=== PATIENT | female | born 1990 | race Caucasian/White ===

== ENCOUNTER 2023-04-11 10:29 | Observation (INO) | payer BC, MEDICAID, SELFPAY ==
--- NOTE | ~2023-04-11 | CT_ITS ---
EXAMINATION: CT abdomen pelvis wo con DATE: 04/11/2023 13:14 INDICATION: Right flank pain. TECHNIQUE: Computed tomography (CT) of the abdomen and pelvis was performed without intravenous contr ast. Automated exposure control and iterative reconstruction technique were employed. The dose-length product was 298.58 mGy-cm. COMPARISON: None. FINDINGS: The visualized portions of the lung bases are clear without pneumonia or pleural effusion. The heart size is normal. No pericardial effusion. There is diffuse hepatic steatosis. There are torres ges of cholecystectomy. There are changes of gastric bypass procedure. The spleen, pancreas, adrenal glands, and left kidney are normal. There is mild right hydronephrosis and hydroureter. There is a 2 mm stone at right ureterovesicular junction. There are no dilated loops of bowel. There are changes o f appendectomy. There are no pathologically enlarged lymph nodes. There is no free intraperitoneal fl uid. There is mild lumbar spondylosis. IMPRESSION: 1. 2 mm stone at right ureterovesicular junction with mild right hydronephrosis and hydroureter. 2. Diffuse hepatic steatosis. Reviewed, dictated and finalized at location A. IMPRESSION: 1. 2 mm stone at right ureterovesicular junction with mild right hydronephrosi s and hydroureter. 2. Diffuse hepatic steatosis.
--- NOTE | ~2023-04-11 | XR_ITS ---
EXAMINATION: XR fluoroscopy no charge DATE: 04/12/2023 13:10 CDT INDICATION: RIGHT STONE EXTRACTION . TECHNIQUE: 2 fluoroscopic images of the abdomen and pelvis were obtained during right stone extractio n performed by the surgeon. I was not present in the operating room. Fluoroscopy exposure time was 2. 8 seconds. Air Kerma 1.12 mGy. DAP [id number] mGym2. COMPARISON: CT abdomen pelvis 04/11/2023 FINDINGS: Wire access into the right collecting system. IMPRESSION: Fluoroscopic documentation of right stone extraction. Please refer to the operative note for complete procedural details . Reviewed, dictated and finalized at location K. IMPRESSION: Fluoroscopic documentation of right stone extraction. Please refer to the opera tive note for complete procedural details .
[2023-04-11 11:02] VITALS: BP 131/82; PULSE 85; RESP 16; TEMP 36.9; O2SAT 100
[2023-04-11 11:45] LABS: Basophils Percent Auto 0.2 % (0.2-1.2); Eosinophils Absolute Auto 0.1 K/mm3 (0-0.3); Eosinophils Percent Auto 0.6 % (0-4.4); Hematocrit 39.3 % (37.0-47.0); Hemoglobin 12.8 g/dL (12.0-15.0); Immature Granulocyte Absolute 0.04 K/mm3 (0.00-0.031); Immature Granulocyte Percent A 0.3 % (0-0.5); Lymphocytes Absolute Auto 2.36 K/mm3 (0.9-3.2); Lymphocytes Percent Auto 18.6 % (18.3-44.2); Mean Corpuscular HGB Conc 32.6 g/dl (32-36); Mean Corpuscular Hemoglobin 28.9 pg (26-34); Mean Corpuscular Volume 88.7 fl (80-100); Mean Platelet Volume 12.1 fl (7.4-10.4); Monocytes Absolute Auto 1.3 K/mm3 (0.1-0.6); Monocytes Percent Auto 10.6 % (2.6-8.5); Neutrophils Absolute Auto 8.9 K/mm3 (1.3-6.7); Neutrophils Percent Auto 69.7 % (45.5-73.1); Platelet Count Result 191 k/mm3 (150-375); Red Blood Count 4.43 M/mm3 (4.2-5.4); Red Cell Distribution Width 13.2 % (11.5-14.5); White Blood Count 12.7 K/mm3 (4.5-10.0)
[2023-04-11 11:50] LABS: Alanine Aminotransferase 267 U/L (6-35); Albumin Level 3.9 g/dL (3.5-5.1); Alkaline Phosphatase 212 U/L (38-126); Anion Gap 9 mmol/L (8-16); Aspartate Amino Transferase 72 U/L (14-36); Bilirubin,Total 0.5 mg/dL (0.2-1.3); Blood Urea Nitrogen 7 mg/dL (7-17); Calcium 8.9 mg/dL (8.4-10.2); Carbon Dioxide 26 mmol/L (22-30); Chloride 105 mmol/L (98-107); Estimated CRCL calculation 95 ml/min; Estimated Glomerular Filt Rate > 60; Glucose 104 mg/dL (65-110); Potassium 3.4 mmol/L (3.4-5.0); Sodium 140 mmol/L (137-145)
--- NOTE | 2023-04-11 12:08 | ED.FEMALEGU ---
HPI - Female Genitourinary General Chief complaint: Urogenital-Female Stated complaint: kidney stone Time Seen by Provider: 04/11/23 11:29 History of Present Illness HPI Narrative: Patient is a 32-year-old female who presents ER for evaluation of kidney stone. She has a right-sided 2 to 3 mm stone. She has had multiple images at [facility]. She followed up with Dr. Subramanian and was given Golden Eagle. Golden Eagle is not helping her pain so she was referred here. She reports that he was wanting to be contacted. She has no fevers or chills or sweats. No dysuria. She is not on antibiotics. She cannot take anti-inflammatories due to gastric bypass surgery. Symptoms have been going on for 3 weeks. Related Data Home Medications Medication Instructions Recorded Confirmed benztropine 1 mg tablet 1 mg PO HS 04/11/23 04/11/23 cetirizine 10 mg capsule (All Day 10 mg PO DAILY 04/11/23 04/11/23 Allergy (cetirizine)) fluvoxamine 100 mg tablet 100 mg PO HS 04/11/23 04/11/23 lurasidone 40 mg tablet 40 mg PO HS 04/11/23 04/11/23 montelukast 10 mg tablet 10 mg PO HS 04/11/23 04/11/23 Allergies Allergy/AdvReac Type Severity Reaction Status Date / Time cephalexin Allergy Mild SWELLING Verified 04/11/23 18:38 Sulfa (Sulfonamide Allergy Mild RASH Verified 04/11/23 18:38 Antibiotics) Penicillins Allergy Unknown Unknown Verified 04/11/23 18:38 NSAIDS (Non-Steroidal Allergy Other Verified 04/11/23 18:38 Anti-Inflamma tolmetin Allergy Unknown Verified 04/11/23 18:38 ondansetron AdvReac Vomiting Verified 04/11/23 18:38 Review of Systems Review of Systems: All systems reviewed & are unremarkable except as noted in HPI and below Constitutional: Constitutional: Denies chills and Denies fatigue Cardiovascular: Cardiovascular: Denies chest pain, Denies rapid heart rate and Denies radiating jaw, neck or arm pain Respiratory: Respiratory: Denies cough and Denies dyspnea Gastrointestinal: Gastrointestinal: Denies abdominal pain, Denies nausea and Denies vomiting Genitourinary: Genitourinary: Denies nocturia, Denies dysuria and Reports flank pain PMFSH Past Medical History Medical History Kidney stones Surgical History Surgical History History of gastric restrictive surgery Social History Social History Smoking status: Never smoker Alcohol intake: never Substance use type: does not use Lack of Transportation: No Lack of Food: Never True Current Housing: I Have Housing Concerned About Future Housing: No Difficulty Paying Gas/Electric Bills: No Difficulty Paying for Meds: No Currently Unemployed: No Education: Associate Degree Difficulty w/ Childcare or Family Care: No Spiritual care concerns: No Exam Narrative: GENERAL: Well-appearing, well-nourished, and in no acute distress. HEAD: Normocephalic, atraumatic. EYES: PERRL and EOMI. ENT: Mucous membranes moist. CHEST: Clear to auscultation. No respiratory distress. HEART: Regular rate and rhythm. Normal peripheral pulses. ABDOMEN: Soft, nontender, nondistended, mild right-sided CVA tenderness. EXTREMITIES: Normal range of motion. No edema. SKIN: Warm, dry, no rash. NEURO: Alert and oriented x3. PSYCH: Normal mood and affect. Course Course Emergency Course: Patient with mild discomfort and requiring IV pain medication. Discussed case with urology who will admit the patient for observation as she does not feel she can wait until her appointment 2 days from now to have a stent placed. Discussed with Dr. Zuniga and Salome CHAU. Vital Signs Vital signs: Vital Signs Temperature 98.4 F 04/11/23 11:02 Pulse Rate 85 04/11/23 11:02 Respiratory Rate 16 04/11/23 11:02 Blood Pressure 131/82 04/11/23 11:02 Pulse Oximetry 100 04/11/23 11:02 Oxygen Delivery
[2023-04-11 12:21] LABS: Appearance Urine Cloudy (Clear); Bacteria Urine 2+ /hpf; Bilirubin Urine Negative (Negative); Blood Urine 3+ (Negative); Color Urine Yellow (Yellow); Glucose Urine UA Negative (Negative); Ketones Urine 2+ mg/dL (Negative); Leukocyte Esterase Ur 1+ LEU/UL (Negative); Need Manual Microscopic Reviewed; Nitrate Urine Negative (Negative); Protein Urine Negative (Negative); RBC Urine 21-50 /hpf (0-2); Specific Grav Ur 1.013 (1.001-1.035); Squamous Epithelial Cell Urine Occasional /hpf (Few); pH Urine 6.5 (5.0-9.0)
[2023-04-11] MEDS: SODIUM CHLORIDE 0.9% IV 1,000 ML 999 ML IV CONT (12:21)
[2023-04-11 12:25] LABS: Add Urine Microscopic? YES
[2023-04-11] MEDS: MORPHINE SULFATE (*CRX) 4 MG/ML INJ IV PUSH ×3 (12:48→23:46)
[2023-04-11] MEDS: PROMETHAZINE HCL 25 MG/ML AMPUL 12.5 MG IV PUSH (16:00)
--- NOTE | 2023-04-11 16:27 | WPDURCON ---
Assessment and Plan Assessment and plan (1) Right ureteral stone: Code(s): N20.1 - Calculus of ureter Status: Acute Assessment and Plan: Patient's pain is uncontrolled and she has been to two ER's in three weeks d/t this stone. She feels as though she cannot wait until Sunday for her stone removal. We will plan to take her to the OR tomorrow for: Cystoscopy, right ureteroscopy with stone extraction, possible right stent placement, right retrograde pyelogram, possible holmium laser. Keep NPO after midnight. Plan to discharge home after surgery tomorrow if doing ok. Admit for pain control tonight. Obtain Consent. Urology Consult Note HPI Date Seen: 04/11/23 Time Seen: 16:27 Primary Care Provider: Abilio Raoch MD Consult Narrative Reason for consult: Right UVJ Stone Narrative: Sarah Kwan is a 32 year old female who presented to [place] [facility] today with worsening right flank pain that began 3 weeks ago. She was seen originally at [facility] where her stone was diagnosed. She was then seen in the office by Dr. Subramanian and was given [place] for pain, told to strain her urine and the plan was made to do a ureteroscopy on Sunday. However, she was unable to wait d/t worsening pain. A repeat CT was done today showing a 2mm right UVJ stone with mild hydronephrosis. Urine Culture Pending, WBC 12.7, Creatinine 0.90, she is afebrile at this time be reports nausea and vomiting. She denies dysuria or hematuria, pain is located in the right flank and radiating to the RLQ. Review of Systems Cardiovascular: Cardiovascular: Reports no additional cardiovascular complaints Respiratory: Respiratory: Reports no additional respiratory complaints Gastrointestinal: Gastrointestinal: Reports abdominal pain, Reports nausea and Reports vomiting Genitourinary: Genitourinary: Denies hematuria, Denies dysuria, Denies pelvic pain, Reports flank pain, Denies urinary incontinence, Denies urinary hesitancy and Denies urinary urgency [facility] Past Medical History Medical History Kidney stones Surgical History Surgical History History of gastric restrictive surgery Meds Home Medications and Allergies Allergies Allergy/AdvReac Type Severity Reaction Status Date / Time cephalexin Allergy Mild SWELLING Unverified 04/11/23 12:21 Sulfa (Sulfonamide Allergy Mild RASH Unverified 04/11/23 12:21 Antibiotics) Penicillins Allergy Unknown Unknown Verified 04/11/23 12:21 NSAIDS (Non-Steroidal Allergy Other Verified 04/11/23 12:21 Anti-Inflamma tolmetin Allergy Unknown Verified 04/11/23 12:21 Vital Signs Vital Signs - 24 hr 04/11/23 11:02 Temperature 98.4 F Pulse Rate 85 Respiratory Rate 16 Blood Pressure 131/82 Pulse Oximetry 100 Oxygen Delivery Room Air Exam Const: General: cooperative and comfortable Resp: Effort & Inspection: normal respiratory effort Cardio: Rate: regular rate GI: GI Palp: Yes Soft to palpation and Yes Tenderness to palpation present (GI) (RLQ) : General: Yes CVA tenderness on the right Extrem: Right lower extremity: no edema Left lower extremity: no edema Results Labs 04/11/23 11:29 04/11/23 11:29 Labs: Short CBC 04/11/23 Range/Units 11:29 WBC 12.7 H (4.5-10.0) K/mm3 Hgb 12.8 (12.0-15.0) g/dL Hct 39.3 (37.0-47.0) % Plt Count 191 (150-375) k/mm3 BMP 04/11/23 11:29 Sodium 140 Potassium 3.4 Chloride 105 Carbon Dioxide 26 BUN 7 Creatinine 0.90 Glucose 104 Calcium 8.9 Liver Function 04/11/23 Range/Units 11:29 Total Bilirubin 0.5 (0.2-1.3) mg/dL AST 72 H (14-36) U/L ALT 267 H (6-35) U/L Alkaline Phosphatase 212 H (38-126) U/L Albumin 3.9 (3.5-5.1) g/dL Urine 04/11/23 Range/Units 11:29 Urine Color Yellow (Yellow) Urine Appearance Cloudy H (Clear) Urine
[2023-04-11 16:34] VITALS: BP 120/83; PULSE 76; RESP 18; O2SAT 100
[2023-04-11] MEDS: LACTATED RINGERS 1,000 ML 125 ML IV CONT (17:51)
[2023-04-11 18:00] VITALS: BP 133/90; PULSE 67; RESP 14; TEMP 36.6; O2SAT 100
--- NOTE | 2023-04-11 18:36 | ADMGEN ---
This patient, Sarah Kwan, was admitted to 3 [facility] Surg Room 319-01. Report received from TERESA Melgar. Patient/family oriented to hospital policies and general routines including ID bracelet, bed and alarms, visiting hours, pain management, procedures, bathroom and other care routines, personal items, smoking policy, room service/diet, and visiting hours. Information on how to activate the Rapid Response Team has been discussed. Patient/Family are encouraged to report perceived risks to care and to ask questions if they do not understand what they are told or what they should do.
[2023-04-11 21:46] VITALS: BP 120/67; PULSE 88; RESP 16; TEMP 36.1; O2SAT 99
[2023-04-12] VITALS (7 sets, daily range): BP systolic 115–127; BP diastolic 70–89; PULSE 73–102; RESP 14–20; TEMP 35.7–36.9; O2SAT 98–100
[2023-04-12] MEDS: LACTATED RINGERS 1,000 ML 125 ML IV CONT (02:31)
--- NOTE | 2023-04-12 04:46 | WPDHPUPDATE1 ---
History and Physical Update Update Date/Time: 04/12/23 04:46 History and Physical has been reviewed, including an updated exam of the patient. There are NO changes in the patient's condition. Risks, benefits, and alternatives have been discussed and questions answered. Patient agrees to proceed with procedure.
[2023-04-12] MEDS: MORPHINE SULFATE (*CRX) 4 MG/ML INJ IV PUSH ×2 (08:11→10:36)
[2023-04-12] MEDS: LACTATED RINGERS 1,000 ML 30 ML IV CONT (12:25)
--- NOTE | 2023-04-12 12:45 | WPDANESEPPF ---
Anes - Initial Pre Proc Eval Procedure: Operation Date: 04/12/23 14:00 Proposed Procedures p Cystoscopy,Right Ureteroscopy,Right Retrograde Pyelogram,Right Stone Extraction,Possible Holmium Laser,Possible Stent Placement - Charli Chakraborty MD Date/Time: 04/12/23 12:45 Surgeon: Sanjeev Zuniga MD Pre Op Diagnosis: Ureterolithiasis Patient Data Age: 32 Gender: F Height: 1.75 m Weight: 90.72 kg Last Vital Signs Temp 97.9 F 04/12/23 12:33 Pulse 74 04/12/23 12:33 Resp 20 04/12/23 12:33 BP 127/80 04/12/23 12:33 Pulse Ox 99 04/12/23 12:33 O2 Del Method Room Air 04/12/23 12:33 Allergies Allergy/AdvReac Type Severity Reaction Status Date / Time cephalexin Allergy Mild SWELLING Verified 04/11/23 18:38 Sulfa (Sulfonamide Allergy Mild RASH Verified 04/11/23 18:38 Antibiotics) Penicillins Allergy Unknown Unknown Verified 04/11/23 18:38 NSAIDS (Non-Steroidal Allergy Other Verified 04/11/23 18:38 Anti-Inflamma tolmetin Allergy Unknown Verified 04/11/23 18:38 ondansetron AdvReac Vomiting Verified 04/11/23 18:38 Home Medications Medication Instructions Recorded Confirmed Type benztropine 1 mg tablet 1 mg PO HS 04/11/23 04/11/23 History cetirizine 10 mg capsule (All Day 10 mg PO DAILY 04/11/23 04/11/23 History Allergy (cetirizine)) fluvoxamine 100 mg tablet 100 mg PO HS 04/11/23 04/11/23 History lurasidone 40 mg tablet 40 mg PO HS 04/11/23 04/11/23 History montelukast 10 mg tablet 10 mg PO HS 04/11/23 04/11/23 History Patient hx anesthesia problems: post op nausea/vomiting Family hx anesthesia problems: none Results Review: All pre-operative results and documents have been reviewed as part of the pre-operative evaluation. [facility] Past Medical History Medical History Kidney stones Surgical History Surgical History History of gastric restrictive surgery Social History Social History Smoking status: Never smoker Alcohol intake: never Substance use type: does not use Lack of Transportation: No Lack of Food: Never True Current Housing: I Have Housing Concerned About Future Housing: No Difficulty Paying Gas/Electric Bills: No Difficulty Paying for Meds: No Currently Unemployed: No Education: Associate Degree Difficulty w/ Childcare or Family Care: No Spiritual care concerns: No Anes - Eval Final PreProcedure Day of Procedure 04/12/23 12:45 Patient weight: normal Heart: regular rate and rhythm Lungs: clear to auscultation Airway: Mallampati scale class II Neurological: alert and oriented Last oral intake: >/= 8 hours ASA classification: II Emergent: no Anesthetic plan: proceed Anesthesia type and monitoring: general LMA and standard monitoring Results Review: All pre-operative results and documents have been reviewed as part of the pre-operative evaluation. Informed Consent: The patient's anesthetic plan and its attendant risks and benefits were discussed with the patient/family/POA. Questions were solicited and answers provided to the satisfaction of the patient/family/POA.
[2023-04-12] MEDS: levoFLOXacin 500 MG/D5W 100 ML 500 MG/100 ML BAG 100 MG IVPB (13:09)
[2023-04-12] MEDS: SCOPOLAMINE 1.5 MG PATCH TRANSDERM (13:12)
[2023-04-12] MEDS: LIDOCAINE HCL 2% GEL UROJET 10 ML PKG MUCOUS MEM (13:24)
--- NOTE | 2023-04-12 13:33 | W.PM.PROC2 ---
Procedure Note - Detailed Date of Procedure 04/12/23 Pre-op Diagnosis Right ureteral stone Post-op Diagnosis Same Procedure Performed Cystoscopy, right ureteroscopy with stone extraction Surgeon Charli Chakraborty MD Anesthesia General Description of Procedure The patient was brought to the operative suite where she is prepped and draped in a routine sterile fashion while in the dorsal lithotomy position after the uneventful induction of a general LMA anesthetic. A 19F rigid cystoscope was placed in the bladder. The patient had no evidence of urethral stricture or bladder neck contracture. The bladder mucosa was endoscopically normal without hyperemia or neoplasm. There was a single, orthotopic ureteral orifice bilaterally. A 0.035 glidewire was advanced into the right renal pelvis under fluoroscopy. The distal ureter was dilated with an 8F/10F ureteral dilator. Ureteroscopy was undertaken with a short, tapered, semi-rigid ureteroscope and the stone was extracted with ease using a 1.9F Escape disposable stone basket. Due to the ease of this manipulation I opted not to place a ureteral stent. The patient's bladder was emptied and was taken to the recovery room having tolerated this procedure well. Urine Output 600 Drains No Pathology Yes Complications No immediate complications Condition Stable Disposition PACU
--- NOTE | 2023-04-17 06:16 | PM.DS ---
DS: Admitting Diagnosis Discharge Date 04/12/23 Admitting Diagnosis Ureteral calculus DS: Summary Hospital Course Hospital Course: Patient was admitted to the emergency department for a painful obstructing distal ureteral calculus. After overnight admission for pain management and hydration underwent uneventful endoscopic stone extraction. Bladder that day, after demonstrated inability to tolerate oral intake patient was discharge without an indwelling Time Spent with Patient Time attestation: Total time spent providing and/or coordinating discharge services: Exam Const: General: no acute distress Resp: Effort & Inspection: normal respiratory effort GI: Inspection: non-distended GI Palp: No abdominal tenderness and No Guarding due to palpation present (GI) Auscultation: normal bowel sounds DS: Data Data Completed and Pending Completed studies during hospitalization: Pending at discharge 04/12/23 13:30 Surgical [PTH] Routine Discharge Plan Discharge Attending physician on discharge: Charli Chakraborty Consulting providers: Gordon Mccarty; Salome Chu; Francisco Javier Ponce; Charli Chakraborty; Luis F Robertson V. Discharging Clinician: Charli Chakraborty Patient Disposition: Home, Self-Care Activity: other - see discharge instructions Diet: other - see discharge instructions Discharge Instructions: 1) Activity: no driving or important decisions x24 hours. 2) Diet: resume your normal, pre-admission diet. 3) Follow-up: 2-3 weeks / call for appointment ([phone]). 4) Remove the Scopolamine patch that was placed behind your ear in 72 hours or less. Wash your hands after touching. Patient Instructions: Antibiotic Form Stand Alone Forms: General Discharge Information Follow-up/Referrals: Charli Chakraborty MD [Physician] - Discharge Medications: New hydrocodone-acetaminophen 5-325 mg tablet 1 - 2 tablet PO Q6H PRN (Reason: pain) Qty: 20 0RF Continued fluvoxamine 100 mg tablet 100 mg PO HS benztropine 1 mg tablet 1 mg PO HS montelukast 10 mg tablet 10 mg PO HS All Day Allergy (cetirizine) 10 mg Capsule 10 mg PO DAILY lurasidone 40 mg tablet 40 mg PO HS Date of admission: 04/11/23 16:28 Primary Care Provider: Abilio Roach Admitting Provider: Sanjeev Zuniga Attending physician on admission: Sanjeev Zuniga Condition: Stable
== END 2023-04-12 18:00 | disposition home or self-care (01) ==
LOC: ANHED 12:24 → ANH3MEDSUR 17:18
PROVIDERS: Urology; Admitting Provider Urology; Emergency Provider Emergency Medicine; PCP Internal Medicine; Visit Provider Urology
PROC: (CPT 52352; principal; 2023-04-12 14:00)
DX: N13.2 Hydronephrosis with renal and ureteral calculous obstruction (principal); K76.0 Fatty (change of) liver, not elsewhere classified; Z98.84 Bariatric surgery status; D72.829 Elevated white blood cell count, unspecified; Z79.899 Other long term (current) drug therapy
CPT/HCPCS: 52352; 36415; 74176; 80053; 81001; 81025; 82365; 85025; 87086; 87088; 88300; 96361; 96374; 96375; 96376; 99199; 99285; A9270; C1769; G0378; J1100; J1956; J2250; J2270; J2550; J2704; J3010; J7030; J7120

== ENCOUNTER 2023-05-21 17:38 | Emergency (ER) | payer BC, MEDICAID, SELFPAY ==
--- NOTE | ~2023-05-21 | XR_ITS ---
EXAMINATION: XR hand LT min 3V DATE: 05/21/2023 18:17 INDICATION: Left hand pain. TECHNIQUE: 3 views of left hand were obtained. COMPARISON: None. FINDINGS: Bone alignment is normal. No fracture. Joint spaces are normal. IMPRESSION: 1. No fracture. Reviewed, dictated and finalized at location E. IMPRESSION: 1. No fracture.
[2023-05-21 17:48] VITALS: BP 118/83; PULSE 64; RESP 16; TEMP 36.6; O2SAT 100
--- NOTE | 2023-05-21 18:11 | ED.UPPEXIN ---
HPI - Extremity Injury (Upper) General Chief Complaint: Extremity Injury, Upper Stated Complaint: Left Hand Injury/Passed Out Source: patient and RN notes reviewed History of Present Illness HPI narrative: 32 yo F presents to urgent care with complaints of left hand pain. PT states she was talking with her neighbors yesterday when she passed out. Pt states she has been having episodes of syncope ever since she had her gastric bypass last year. Pt states she doesn't know how she landed yesterday but woke up with left hand pain. Pt denies any HINES, dizziness, chest pain, SOB, or vomiting. Denies any numbness or tingling. Related Data Home Medications Medication Instructions Recorded Confirmed benztropine 1 mg tablet 1 mg PO HS 04/11/23 05/21/23 fluvoxamine 100 mg tablet 100 mg PO HS 04/11/23 05/21/23 lurasidone 40 mg tablet 40 mg PO HS 04/11/23 05/21/23 montelukast 10 mg tablet 10 mg PO HS 04/11/23 05/21/23 bupropion HCl 150 mg 24 hr tablet, 150 mg PO DAILY 05/21/23 05/21/23 extended release clonazepam 0.5 mg tablet 0.5 mg PO BID PRN Anxiety 05/21/23 05/21/23 erenumab-aooe 70 mg/mL 70 mg subcut MONTHLY 05/21/23 05/21/23 subcutaneous auto-injector (Aimovig Autoinjector) zolpidem 5 mg tablet 5 mg PO HS PRN Anxiety 05/21/23 05/21/23 Allergies Allergy/AdvReac Type Severity Reaction Status Date / Time cephalexin Allergy Mild SWELLING Verified 04/11/23 18:38 Sulfa (Sulfonamide Allergy Mild RASH Verified 04/11/23 18:38 Antibiotics) Penicillins Allergy Unknown Unknown Verified 04/11/23 18:38 NSAIDS (Non-Steroidal Allergy Other Verified 04/11/23 18:38 Anti-Inflamma tolmetin Allergy Unknown Verified 04/11/23 18:38 ondansetron AdvReac Vomiting Verified 04/11/23 18:38 Review of Systems Review of Systems: CONSTITUTIONAL: Denies fever, chills, or sweats. EYES: Denies visual changes, redness, or discharge. ENT: Denies otalgia and sore throat CARDIOVASCULAR: Denies chest pain, palpitations, or edema. RESPIRATORY: Denies cough or dyspnea. GASTROINTESTINAL: Denies abdominal pain, nausea, vomiting, or diarrhea. GENITOURINARY: Denies dysuria or hematuria. SKIN: Denies rash or itching. MUSCULOSKELETAL: Left hand pain NEUROLOGIC: Denies headache, numbness, or weakness. Pertinent positives per HPI. [facility] Past Medical History Medical History Kidney stones Surgical History Surgical History History of gastric restrictive surgery Social History Social History Smoking status: Never smoker Alcohol intake: never Substance use type: does not use Lack of Transportation: No Lack of Food: Never True Current Housing: I Have Housing Concerned About Future Housing: No Difficulty Paying Gas/Electric Bills: No Difficulty Paying for Meds: No Currently Unemployed: No Education: Associate Degree Difficulty w/ Childcare or Family Care: No Gender identity (if verbalized by the patient): Female Sexual Orientation (if Verbalized by the Patient): Straight or Heterosexual Spiritual care concerns: No Comments At the time of my signature, I reviewed and agree with the nursing past medical, surgical, social, and family history. There is no relevant family history pertinent to the patient complaint. Exam Narrative: GENERAL: This is a well-nourished, well-developed patient, in no apparent distress. HEAD: normocephalic, atraumatic. EYES: Sclera clear/white. Vision is grossly intact. EARS: External ears normal, auditory canals clear and without drainage, TMs normal without perforation. Hearing grossly intact. NOSE: External nose normal with no obvious nasal discharge, nares without redness, no rhinorrhea. THROAT: Mucous membranes moist, posterior pharynx clear. NECK: Neck supple, non-tender without lymphadenopathy, masses or th
== END 2023-05-21 18:36 | disposition home or self-care (01) ==
PROVIDERS: Emergency Provider Nurse Practitioner Family; PCP Internal Medicine
DX: S63.92XA Sprain of unspecified part of left wrist and hand, initial encounter (principal); W19.XXXA Unspecified fall, initial encounter; J45.909 Unspecified asthma, uncomplicated; Z98.84 Bariatric surgery status; L40.9 Psoriasis, unspecified; F41.9 Anxiety disorder, unspecified; F31.9 Bipolar disorder, unspecified; F43.10 Post-traumatic stress disorder, unspecified
CPT/HCPCS: 73130; 99213; G0463

== ENCOUNTER 2024-04-23 12:31 | Emergency (ER) | payer BC, SELFPAY ==
[2024-04-23 12:47] VITALS: BP 98/64; PULSE 84; RESP 16; TEMP 36.6; O2SAT 100
--- NOTE | 2024-04-23 13:12 | ED.NAVMDI ---
HPI - Nausea/Vomiting/Diarrhea General Chief complaint: Nausea/Vomiting/Diarrhea Stated complaint: nausea/lightheaded/vomitting Time Seen by Provider: 04/23/24 13:30 Source: patient and RN notes reviewed Mode of arrival: ambulatory Limitations: no limitations History of Present Illness HPI Narrative: 33 y/o female who presents with complaints of nausea/vomiting, dizziness, and headache x3 days. she has a history of migraines and vertigo but says these symptoms are atypical for her. She states the dizziness is worse with position changes or head movements. states meclizine had made vertigo worse in the past. She tested herself for COVID at home today and it was negative. She denies any vision changes fevers/chills, diarrhea, constipation, shortness of breath, or chest pain. Related Data Home Medications Medication Instructions Recorded Confirmed benztropine 1 mg tablet 1 mg PO HS 04/11/23 04/23/24 fluvoxamine 100 mg tablet 100 mg PO HS 04/11/23 04/23/24 lurasidone 40 mg tablet 40 mg PO HS 04/11/23 04/23/24 clonazepam 0.5 mg tablet 0.5 mg PO BID PRN Anxiety 05/21/23 04/23/24 erenumab-aooe 70 mg/mL 70 mg subcut MONTHLY 05/21/23 04/23/24 subcutaneous auto-injector (Aimovig Autoinjector) zolpidem 5 mg tablet 5 mg PO HS PRN Anxiety 05/21/23 04/23/24 prochlorperazine maleate 10 mg 10 mg PO PRN PRN Nausea 04/23/24 04/23/24 tablet ubrogepant 50 mg tablet (Ubrelvy) 50 mg PO PRN PRN Migraines 04/23/24 04/23/24 Allergies Allergy/AdvReac Type Severity Reaction Status Date / Time cephalexin Allergy Mild SWELLING Verified 04/11/23 18:38 Sulfa (Sulfonamide Allergy Mild RASH Verified 04/11/23 18:38 Antibiotics) Penicillins Allergy Unknown Unknown Verified 04/11/23 18:38 NSAIDS (Non-Steroidal Allergy Other Verified 04/11/23 18:38 Anti-Inflamma tolmetin Allergy Unknown Verified 04/11/23 18:38 ondansetron AdvReac Vomiting Verified 04/11/23 18:38 Review of Systems Review of Systems: CONSTITUTIONAL: Denies body aches, fever, chills ENT: Denies rhinorrhea, congestion CARDIOVASCULAR: Denies chest pain, palpitations, or edema. RESPIRATORY: Denies cough or dyspnea. GASTROINTESTINAL: Endorses nausea, vomiting. Denies hematochezia, melena, hematemesis, abdominal pain GENITOURINARY: Denies dysuria, hematuria, or CVA tenderness. SKIN: Denies rash, itching, or wounds. MUSCULOSKELETAL: Denies back pain, joint pain, or myalgia. NEUROLOGIC: Reports headache. Denies numbness, tingling, or weakness. All systems reviewed & are unremarkable except as noted in HPI and below PMFSH Past Medical History Medical History Kidney stones Surgical History Surgical History History of gastric restrictive surgery Social History Social History Smoking status: Never smoker Alcohol intake: never Substance use type: does not use Lack of Transportation: No Lack of Food: Never True Current Housing: I Have Housing Concerned About Future Housing: No Difficulty Paying Gas/Electric Bills: No Difficulty Paying for Meds: No Currently Unemployed: No Education: Associate Degree Difficulty w/ Childcare or Family Care: No Gender identity (if verbalized by the patient): Female Sexual Orientation (if Verbalized by the Patient): Straight or Heterosexual Spiritual care concerns: No Comments At time of signature, I have reviewed and agree with nursing past medical, surgical, social and family history unless otherwise noted. Please see nursing chart for further information. There is no relevant family history pertinent to the presenting complaint Exam Narrative: GENERAL: mildly Ill-appearing and in no acute distress. EYES: EOMI. PERRLA. Conjunctivae normal. ENT: Mucous membranes pink and moist. TMs normal With clear effusion bilaterally. CHES
== END 2024-04-23 14:09 | disposition short-term general hospital (02) ==
PROVIDERS: Emergency Provider Nurse Practitioner Family; PCP Internal Medicine
DX: R42 Dizziness and giddiness (principal)
CPT/HCPCS: 99212; G0463